=== PATIENT | female | born 1960 | race Caucasian/White ===

== ENCOUNTER 2020-11-21 18:24 | Emergency (ER) | payer MEDICAID, MEDICARE ==
[~2020-11-21] VITALS: Ht 160 cm; Wt 55.7 kg
--- NOTE | 2020-11-21 20:52 | NUR ---
PT IS A&O X4. PT DENIES SI, HI. VS STABLE. NO ACUTE DISTRESS. PT REPORTS SHE IS RECENTLY HOMELESS. PT GIVEN A TAXI VOUCHER TO THE GROUP HOME. PT IN APPROPRIATE CLOTHING. PT DISCHARGED PER IMTIAZ Garcia NP
[2020-11-21 20:53] VITALS: BP 120/79
== END 2020-11-21 21:10 ==
LOC: ED 20:07
DX: F32.9 Major depressive disorder, single episode, unspecified (principal); Z72.9 Problem related to lifestyle, unspecified
CPT/HCPCS: 99281